=== PATIENT | male | born 1985 | race Caucasian/White ===

== ENCOUNTER 2018-01-14 01:56 | Emergency (ER) | payer BC, SELFPAY ==
[2018-01-14 01:56] VITALS: BP 156/74; PULSE 88; RESP 18; TEMP 36.1; O2SAT 97; BMI 47.2
--- NOTE | 2018-01-14 02:07 | US_ITS ---
STUDY: SCROTUM ULTRASOUND REASON FOR EXAM: Male, 32 years old. Pain TECHNIQUE: Ultrasound evaluation of the scrotum was performed with color Doppler and static parikh-scale imaging. COMPARISON: None. FINDINGS: RIGHT TESTICLE INTRATESTICULAR: There is a normal size of the right testicle. The right testicle measures 3.6 x 2.7 x 2.3 cm. There is a homogenous echotexture. There is normal arterial and normal venous vascularity. There is no demonstrated right testicular mass or cyst. EXTRATESTICULAR: The epididymis is normal in size. The epididymis head measures 1 x 1.1 x 0.8 cm. There is normal vascularity of the epididymis. There is no demonstrated epididymal cystic structure. There is a small hydrocele. There is no demonstrated varicocele. There is no demonstrated extratesticular mass or cyst. LEFT TESTICLE INTRATESTICULAR: There is a normal size of the left testicle. The left testicle measures 3.5 x 3 x 2 cm. There is a homogenous echotexture. There is normal arterial and normal venous vascularity. There is no demonstrated left testicular mass or cyst. EXTRATESTICULAR: The epididymis is normal in size. The epididymis head measures 1 x 2.1 x 1.1 cm. There is normal vascularity of the epididymis. There are 2 cystic structures within the epididymis measuring 7 mm each. There is a small hydrocele. There is no demonstrated varicocele. There is no demonstrated extratesticular mass or cyst. US/Testicular with Arterial Flow IMPRESSION: Bilateral testicular flow identified. Small bilateral hydrocele. Left epididymal cystic structures likely spermatocele versus epididymal cyst. Electronically Signed: Higinio Parnell, at 3:42 EDT Tel , Service support ,
--- NOTE | 2018-01-14 02:10 | ED.DCSUM_ITS ---
- ER Visit Summary Date of Service: 01/14/18 Chief Complaint: Right testicular pain History of Present Illness: The patient is a 32 M presenting with right-sided testicular pain. He states this has been ongoing since Friday with intermittent severe pain. He has not tried any medications at home. He states he had this 2 years ago and went to [facility]. He states he was diagnosed with a hernia but never followed up. He denies fever or other complaints. Physical Examination: Vitals are stable. Patient is afebrile. Alert no acute distress. HEENT exam is unremarkable. Neck is supple. Lungs are clear and equal bilaterally. Heart is regular rate and rhythm. Abdomen is soft nontender nondistended. No inguinal hernia palpated : Right testicular tenderness, no rash or discharge Extremities are unremarkable. Skin is warm and dry. No focal neurologic deficit. Remainder of exam is unremarkable. Emergency Department Course and Treatment: Patient is given morphine, Zofran IV. Testicular ultrasound shows bilateral testicular flow, small bilateral hydrocele, left epididymal cystic structures likely spermatocele versus epididymal cyst. Urinalysis is unremarkable. Patient is advised to take NSAIDs for pain. He is advised to follow-up with Dr. Riojas. Advised return to ED for worsening complaints. Disposition: Discharge home Impression: Testicular pain This note was generated with [employer] dictation software. It may contain incorrect words, spelling, and punctuation that were not noted in review of the chart prior to signing ED Disposition - Plan for ED Patient: Chief Complaint: Male Pain/Injury Referrals: Jan Osman MD [Primary Care Provider] -
[2018-01-14] MEDS: Ondansetron 4 MG/2 ML Vial IV (02:15)
[2018-01-14] MEDS: Morphine 4 MG/ML Syringe IV (02:15)
[2018-01-14 03:56] VITALS: RESP 16
[2018-01-14 06:10] LABS: Mucous, Urine 0 SEEN /hpf (<or=2+); Red Blood Cells-Urine 0 SEEN /hpf (0-5); White Blood Cells 0 SEEN /hpf (0-5)
[2018-01-14 06:19] LABS: Color, Urine Yellow (Yellow); Glucose, Dipstick Normal (Normal); Ketone-Dipstick Negative (Negative); Leukocyte Esterase-Dipstick Negative /ul (Negative); Nitrite-Dipstick Negative (Negative); Occult Blood-Urine Negative /ul (Negative); Protein-Dipstick 15 mg/dl (Negative); Urine Bilirubin Dipstick Negative (Negative); Urine Clarity Clear (Clear); Urine Urobilinogen Normal (Normal)
[2018-01-14 06:41] LABS: Bacteria RARE /hpf (None Seen); Squamous Epithelial Cells - UA 0-5 SEEN /hpf (0-5)
--- NOTE | 2018-01-14 06:52 | ED.DEP ---
ED Disposition - Plan for ED Patient: Chief Complaint: Male Pain/Injury Instructions: ED Testicular Pain [facility] Referrals: Jan Osman MD [Primary Care Provider] - Alex Riojas MD [STAFF PHYSICIAN] -
[2018-01-14 07:01] VITALS: BP 147/68; PULSE 91; RESP 18; O2SAT 99
== END 2018-01-14 07:01 | disposition home or self-care (01) ==
PROVIDERS: Emergency Provider Emergency Medicine; Family Provider Family Medicine; PCP Family Medicine
DX: N50.811 Right testicular pain (principal); N43.3 Hydrocele, unspecified
CPT/HCPCS: 76870; 81001; 93976; 96374; 96375; 99283; J2405

== ENCOUNTER → 2018-01-27 16:00 | Outpatient (CLI) | payer BC, SELFPAY | LOC: CT 16:02 | PROVIDERS: Family Provider Family Medicine; PCP Family Medicine; Visit Provider Nurse Practitioner Adult Health | DX: R10.30 Lower abdominal pain, unspecified (principal); N50.811 Right testicular pain; Z87.442 Personal history of urinary calculi | CPT/HCPCS: 74176 ==

== ENCOUNTER → 2018-01-27 16:17 | Outpatient (CLI) | payer BC, SELFPAY | PROVIDERS: Visit Provider Nurse Practitioner Adult Health | DX: N45.2 Orchitis (principal) | CPT/HCPCS: 87086 ==

== ENCOUNTER → 2018-08-10 16:51 | Outpatient (CLI) | payer BC, SELFPAY | LOC: LABSPEC 16:52 | PROVIDERS: Referring Provider Nurse Practitioner Adult Health; Visit Provider Nurse Practitioner Adult Health | DX: R30.0 Dysuria (principal) | CPT/HCPCS: 87086 ==